=== PATIENT | male | born 2005 ===

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

== ENCOUNTER 2024-02-16 07:17 | Outpatient (RCR) | payer OTHER, SELFPAY | END 2024-06-06 10:03 | disposition home or self-care (01) | PROVIDERS: Visit Provider Orthopaedic Surgery Sports Medicine | DX: Z98.890 Other specified postprocedural states (principal); M25.562 Pain in left knee; M62.81 Muscle weakness (generalized); Z51.89 Encounter for other specified aftercare | CPT/HCPCS: 97110; 97140; 97161; 97164 ==

== ENCOUNTER 2024-03-20 18:44 | Emergency (ER) | payer OTHER, SELFPAY ==
[2024-03-20 18:52] VITALS: BP 104/52; PULSE 75; RESP 18; TEMP 37.1; O2SAT 98; BMI 25.0
[2024-03-20 19:45] VITALS: O2SAT 98
[2024-03-20] MEDS: ONDANSETRON 2 MG/ML inj 4 MG IVP (20:10)
[2024-03-20] MEDS: 0.9 % SODIUM CHLORIDE 500 ML 500 ML 1000 ML IV ×2 (20:10→20:31)
[2024-03-20 20:17] LABS: Basophils Percent Auto 0.2 % (0.0-3.0); Eosinophils Percent Auto 0.1 % (0.0-7.0); Hematocrit 48.7 % (37.0-53.0); Immature Granulocytes Pct Auto 0.1 %; Lymphocytes Percent Auto 1.9 % (20-44); Mean Corpuscular HGB Conc 33 gm/dL (32-36); Mean Corpuscular Hemoglobin 30 pg (26-34); Mean Corpuscular Volume 90 fL (80-100); Monocytes Percent Auto 4.5 % (0.0-11.0); Neutrophils Percent Auto 93.2 % (42.0-72.0); Platelet Count* 206 K/uL (140-440); RDW Coefficient of Variation % 11.9 % (11.5-15.5); White Blood Count* 11.94 K/uL (4.50-11.00)
[2024-03-20 20:19] LABS: Slide Review Reflex No
[2024-03-20 20:38] VITALS: BP 112/74; PULSE 70; RESP 18; TEMP 37.1; O2SAT 98
[2024-03-20 20:49] LABS: Chloride* 106 mmol/L (96-114); Potassium* 4.2 mmol/L (3.6-5.1); Sodium* 138 mmol/L (135-149)
[2024-03-20 20:51] LABS: Aspartate Amino Transferase* 26 U/L (12-35); Bilirubin Direct* 0.2 mg/dL (0.0-0.5); Bilirubin Total* 1.5 mg/dL (0.1-1.5); Total Protein* 7.8 g/dL (6.0-8.3)
[2024-03-20 20:52] LABS: Alanine Aminotransferase* 25 U/L (4-50); Alkaline Phosphatase* 58 U/L (65-260); Anion Gap 11 mEq/L (7-15); Blood Urea Nitrogen* 19 mg/dL (5-24); Carbon Dioxide* 21 mmol/L (20-32); Creatinine* 0.9 mg/dL (0.6-1.2); Est. Creatinine Clearance* 162.08; Estimated Glomerular Filt Rate 126 ml/min
[2024-03-20 20:53] LABS: Calcium* 9.8 mg/dL (8.7-10.8); Glucose* 112 mg/dL (60-115)
[2024-03-20 21:05] LABS: PCR FLU A Negative PCR FLU A (Negative); PCR FLU B Negative PCR FLU B (Negative); PCR RSV Negative PCR RSV (Negative); SARS PCR* Negative SARS-CoV-2 (Negative)
--- NOTE | 2024-03-20 21:13 | ED.NAVMDI ---
HPI - Nausea/Vomiting/Diarrhea General Date Seen: 03/20/24 Chief complaint: Nausea/Vomiting Stated complaint: vomitting Time Seen by Provider: 03/20/24 20:03 Source: patient Mode of arrival: ambulatory Limitations: no limitations History of Present Illness HPI Narrative: Patient is an 18-year-old male stating he has been having nausea, vomiting, diarrhea since 05:00 this morning. He states he woke up this morning and had quite a bit of diarrhea and vomited. He was feeling better after that but then symptoms returning having persistent throughout the day. States he has lost track troponin times he has vomited and has had 5 or 6 episodes of watery diarrhea. Initially thought was food poisoning but was concerned because it is continuing and he was becoming lightheaded. Has not been able to eat or drink anything due to the nausea. Does not have any nausea medication at home. Is not aware of any sick contacts. Has been having chills but has not had a fever. Has been feeling lightheaded. Denies chest pain, shortness of breath, dysuria, weakness, numbness. Has noticed some mild abdominal discomfort in the epigastric region. No other concerns noted. No previous abdominal surgeries Related Data Home Medications ?Medication ?Instructions ?Recorded ?Confirmed No Known Home Medications 03/20/24 03/20/24 Allergies Allergy/AdvReac Type Severity Reaction Status Date / Time No Known Drug Allergies Allergy Verified 03/20/24 18:56 Review of Systems Status of ROS: Reports: 10 or more systems reviewed and unremarkable except as noted in History and below [facility] Medical History No significant past medical history Surgical History No significant past surgical history Social History Smoking Status: Never smoker Second hand tobacco smoke exposure: No How often do you have a drink containing alcohol: never AUDIT-C Alcohol total score: 0 Non-prescribed substance use: denies use Exam Narrative: Exam Narrative: Const: Well-nourished, Well-developed, in mild distress Eyes: PERRL, no conjunctival injection, and symmetrical lids HENT: Atraumatic external nose and ears. Moist mucous membranes. Neck: Symmetric, trachea midline, No thyromegaly. CVS: RRR, No murmurs or gallops. Peripheral pulses 2+ and equal in all extremities RESP: Unlabored respiratory effort. Clear to auscultation bilaterally. GI: Nontender/Nondistended, No rebound or guarding. MSK:Extremities w/o deformity, Normal Active ROM Skin: Warm, Dry. No rashes or lesions. Neuro: Normal Muscle tone, No focal neurological deficits. Psych: Awake, Alert, & Oriented x3. Appropriate mood and affect. Const: Vital Signs, click to edit/add: Vital Signs - 24 hr 03/20/24 18:52 03/20/24 20:38 Temperature 98.8 F 98.8 F Pulse Rate [Pulse Oximeter] 75 70 Respiratory Rate 18 18 [facility] 104/52 L 112/74 Pulse Oximetry 98 98 Oxygen Delivery Me thod Room Air Room Air Course Vital Signs Vital signs: Initial Vital Signs Temperature 98.8 F 03/20/24 18:52 Temperature Source Temporal Artery Scan 03/20/24 18:52 Pulse Rate 75 03/20/24 18:52 Respiratory Rate 18 03/20/24 18:52 Blood Pressure 104/52 L 03/20/24 18:52 Blood Pressure Mean 69 L 03/20/24 18:52 Blood Pressure Position Sitting 03/20/24 18:52 Pulse Oximetry 98 03/20/24 18:52 Oxygen Delivery Method Room Air 03/20/24 18:52 Vital Signs Temperature 98.8 F 03/20/24 18:52 Pulse Rate 75 03/20/24 18:52 Respiratory Rate 18 03/20/24 18:52 Blood Pressure 104/52 L 03/20/24 18:52 Pulse Oximetry 98 03/20/24 18:52 Oxygen Delivery Method Room Air 03/20/24 18:52 Temperature 98.8 F 03/20/24 20:38 Pulse Rate 70 03/20/24 20:38 Respiratory Rate 18 03/20/24 20:38 Blood Pressure 112/74 03/20/24 20:38 Pulse Oximetry 98 03/20/24 20:38 Oxygen Delivery Method Room Air 03/20/24 20:38 Medications Administered Medications: Discontinued Medications Generic Name Dose Route Start Last Admin Trade Name Freq PRN Reason Stop Dose Admin Sodium Chloride 500 mls @ 1,000 mls/hr 03/20/24 20:27 03/20/24 20:35 0.9 % Sodium Chloride 500 Ml IV 03/20/24 20:56 Infused .Q30M ONE Infusion Sodium Chloride 500 mls @ 1,000 mls/hr 03/20/24 20:27 03/20/24 21:09 0.9 % Sodium Chloride 500 Ml IV 03/20/24 20:56 Infused .Q30M ONE Infusion Ondansetron HCl 4 mg 03/20/24 20:27 03/20/24 20:10 Ondansetron 2 Mg/Ml Inj IVP 03/20/24 20:28 4 mg ONCE ONE Administration MDM - Nausea/Vomiting/Diarrhea MDM Narrative Medical decision making narrative: Patient is a 18-year-old male presenting for nausea, vomiting, diarrhea. Seems most likely is suffering from a gastroenteritis causing his symptoms full will check lipase for insensible pancreatitis. Symptoms seem likely due soon SBO concerned he has never had surgery before. Seems less likely to be gallbladder liver removed will do a CMP. Also will check electrolytes due to the vomiting and diarrhea. Viral swab will be ordered along with a CBC. Patient initially given 500 mL of normal saline due to the shortage and some Zofran. He was feeling some improvement after the medications post still feeling quite dehydrated. Did have another episode of emesis prior to receiving the Zofran. Will give him another 500 mL bolus. Patient's lab work shows no concerning abnormalities. He is feeling much better after the medications. Most likely had a gastroenteritis. Will be discharged with Zofran via instymeds. He is agreeable to this plan. Lab Data Labs: Lab Results 03/20/24 03/20/24 Range/Units 20:00 21:14 WBC 11.94 H (4.50-11.00) K/uL RBC 5.40 (4.30-5.90) m/uL Hgb 16.0 (13.5-17.5) gm/dL Hct 48.7 (37.0-53.0) % MCV 90 (80-100) fL MCH 30 (26-34) pg MCHC 33 (32-36) gm/dL RDW Coeff of Mel 11.9 (11.5-15.5) % Plt Count 206 (140-440) K/uL Neut % (Auto) 93.2 H (42.0-72.0) % Lymph % (Auto) 1.9 L (20-44) % [place] % (Auto) 4.5 (0.0-11.0) % Eos % (Auto) 0.1 (0.0-7.0) % Baso % (Auto) 0.2 (0.0-3.0) % Neut # (Auto) 11.10 H (1.7-7.0) K/uL Lymph # (Auto) 0.20 L (0.90-2.90) K/uL [place] # (Auto) 0.50 (0.00-0.90) K/UL Eos # (Auto) 0.00 (0.00-0.50) K/uL Baso # (Auto) 0.00 (0.00-0.30) K/uL Abs Immat Gran (auto) 0.00 (0.00-0.30) K/uL Imm/Tot Granulo (auto) 0.1 % Sodium 138 (135-149) mmol/L Potassium 4.2 (3.6-5.1) mmol/L Chloride 106 (96-114) mmol/L Carbon Dioxide 21 (20-32) mmol/L Anion Gap 11 (7-15) mEq/L BUN 19 (5-24) mg/dL Creatinine 0.9 (0.6-1.2) mg/dL Estimated Creat Clear 162.08 Estimated GFR 126 ml/min Glucose 112 (60-115) mg/dL Calcium 9.8 (8.7-10.8) mg/dL Total Bilirubin 1.5 (0.1-1.5) mg/dL Direct Bilirubin 0.2 (0.0-0.5) mg/dL AST 26 (12-35) U/L ALT 25 (4-50) U/L Alkaline Phosphatase 58 L (65-260) U/L Total Protein 7.8 (6.0-8.3) g/dL Albumin 5.0 (3.3-5.0) g/dL Lipase 45 (23-300) U/L SARS-CoV-2 (PCR) Negative SARS-CoV-2 (Negative) Influenza Type A (PCR) Negative PCR FLU A (Negative) Influenza Type B (PCR) Negative PCR FLU B (Negative) RSV (PCR) Negative PCR RSV (Negative) Lab Acknowledgement Test Added Discharge Plan Discharge Clinical Impression: Gastroenteritis Patient Disposition: Home, Self-Care Condition: Improved Instructions: Acute Nausea and Vomiting (ED) Additional Instructions: Use the Zofran prescribed via instymeds as needed for your nausea. I recommend you take it as soon is he started feeling nauseated to get ahead of the symptoms. Make sure to stay well hydrated. Return to emergency department for new or worsening symptoms Prescriptions: No Action No Known Home Medications Follow Up/Referrals: Provider,Not a Local [Primary Care Provider] - Stand Alone Forms: [facility] Info Instructions
[2024-03-20 21:31] LABS: Lipase* 45 U/L (23-300)
== END 2024-03-20 21:57 | disposition home or self-care (01) ==
PROVIDERS: Emergency Provider Student in an Organized Health Care Education/Training Program
DX: K52.9 Noninfective gastroenteritis and colitis, unspecified (principal)
CPT/HCPCS: 36415; 80048; 80076; 83690; 85025; 87631; 94761; 96361; 96374; 99284; J2405; J7030